=== PATIENT | male | born 1975 | race Two or more races ===

== ENCOUNTER 2019-11-03 16:57 | Emergency (ER) | payer OTHER ==
[~2019-11-03] VITALS: Ht 180.3 cm; Wt 73.5 kg
[~2019-11-03 16:57] MED LIST: KETO10TA2 PO; TRAMADOL HCL-AP1 TAB PO
== END 2019-11-03 20:24 | disposition home or self-care (01) ==
LOC: ER 16:57
DX: N13.2 Hydronephrosis with renal and ureteral calculous obstruction (principal)